=== PATIENT | male | born 1995 | race Caucasian/White ===

== ENCOUNTER 2025-02-20 12:14 | Emergency (ER) | payer SELFPAY ==
[2025-02-20 12:24] VITALS: BP 141/94; PULSE 93; RESP 16; TEMP 37.1; O2SAT 100
--- NOTE | 2025-02-20 12:26 | ED.SKABFB ---
HPI - Skin/Abscess/Foreign Bdy General Chief complaint: Skin/Abscess/Foreign Body Stated complaint: area behind left ear painful Time Seen by Provider: 02/20/25 12:27 Source: patient, RN notes reviewed and old records reviewed Mode of arrival: ambulatory Limitations: no limitations History of Present Illness HPI narrative: 29-year-old male presents to the [facility] with concerns of pain, swelling posterior left earlobe. Patient does have a gauge in the area, multiple piercings without ear rings. Area is fluctuant. Patient reports that it has been there for several days. And getting bigger and more painful Related Data Allergies Allergy/AdvReac Type Severity Reaction Status Date / Time No Known Allergies Allergy Verified 02/20/25 12:52 Review of Systems Review of Systems: All systems reviewed & are unremarkable except as noted in HPI and below Constitutional: Constitutional: Reports no additional constitutional complaints ENT: Reports as per HPI Cardiovascular: Cardiovascular: Reports no additional cardiovascular complaints, Denies chest pain and Denies dyspnea Respiratory: Respiratory: Reports no additional respiratory complaints, Denies chest congestion, Denies cough and Denies dyspnea Musculoskeletal: Musculoskeletal: Reports no additional musculoskeletal complaints Integumentary/Breasts: Skin/Breast: Reports system reviewed and no additional complaints, except as docu PMFSH Comments At the time of my signature, I reviewed and agree with the nursing past medical, surgical, social, and family history. There is no relevant family history pertinent to the patient complaint. Exam Const: General: cooperative, healthy appearing, comfortable, no acute distress, well developed, alert and well nourished Nutritional Appearance: well nourished Orientation/consciousness: patient oriented x3 Limitations: no limitations HENMT: Head: normal to inspection Ears: hearing grossly normal bilaterally, TM's normal bilaterally, EAC's normal, mastoids normal, no periauricular adenopathy and other (Posterior left earlobe, fluctuant, erythema. 1.5x2 cm) Eyes: General: appearance normal, both eyes and all related structures Alignment and Position: alignment normal Neck: Neck: normal visual inspection, full ROM, no lymphadenopathy and no meningeal signs Chest: Chest palpation & inspection: normal inspection of the chest Resp: Effort & Inspection: normal respiratory effort and able to speak in complete sentences Auscultation: clear to auscultation bilaterally, no crackles, no rales, no rhonchi and no wheezes Cardio: Rate: regular rate Skin: General skin exam: normal color and no rashes or lesions noted Neuro: General: patient oriented x3, gait normal, moves all extremities and no meningeal signs Cognition (Neuro): normal cognition Speech: normal speech Gait exam (Neuro): Normal gait present Extrem: General: normal to inspection, full ROM, capillary refill normal and normal gait Psych: Appearance: grossly normal and well kempt Mental Status: mental status grossly normal Speech and movement: Normal speech and movement present and Clear speech present Affect: normal affect Attitude: cooperative Course Course Level of Care: Express Care Visit Vital Signs Vital signs: Vital Signs Temperature 98.7 F 02/20/25 12:24 Pulse Rate 93 02/20/25 12:24 Respiratory Rate 16 02/20/25 12:24 Blood Pressure 141/94 H 02/20/25 12:24 Pulse Oximetry 100 02/20/25 12:24 Oxygen Delivery Room Air 02/20/25 12:24 Temperature 98.7 F 02/20/25 12:24 Pulse Rate 93 02/20/25 12:24 Respiratory Rate 16 02/20/25 12:24 Blood Pressure 141/94 H 02/20/25 12:24 Pulse Oximetry 100 02/20/25 12:24 Oxygen Delivery Room Air 02/20/25 12:24 Reviewed Procedures Abscess I/D ear: Date of Incision: 02/20/25 Time of Incision: 12:45 Side (if applicable): left Technique: needle aspiration and incised with #11 blade Amount of fluid expressed (mL): 20 Irrigation: No Packing used?: none I&D Results: Pus Abcess I&D Additional Comments: Procedure explained. Verbal consent obtained. Area cleaned with Betadine, used 18 gauge needle, needle aspiration attempted to. Purulent drainage noted. Opened little more with an 11 blade. Significant amount of purulent drainage noted, culture collected and sent to lab. MDM - Skin/Abscess/Foreign Bdy MDM Narrative Medical decision making narrative: Patient sitting comfortably in exam room. Patient is nontoxic, vitals stable. Patient presents for for abscess posterior left earlobe. Area opened and collected, sent to lab Patient appropriate for outpatient treatment with follow-up Discharge instructions reviewed with patient, as well as provided in writing per nursing staff. The instructions also include specific and strict return/GO TO THE ER as well as f/u information. All questions have been answered, and the patient deny any further questions with discharge and discharge plan. Some parts of this dictation were generated by voice recognition software and may contain typographical and/or grammatical inaccuracies. Differential Diagnosis Differential diagnosis: Likely abscess of skin or subcutaneous tissue, cellulitis, insect bites and contact dermatitis Critical Care Time Critical Care Time Critical Care Time: No Discharge Plan Discharge Clinical Impression: Abscess of skin or subcutaneous tissue Qualifiers: Site of cutaneous abscess: unspecified site Qualified Code(s): L02.91 - Cutaneous abscess, unspecified Patient Disposition: Home Condition: Stable Instructions: Antibiotic Form, Abscess (ED), Abscess Incision and Drainage (DC) Additional Instructions: DO NOT pick at the area. This will only make the area worse and drive infection deeper. Shower and wash with soapy water. Keep area clean and dry. Take all the antibiotics as prescribed. Make sure to keep a dressing in place especially while it is draining Follow up with PCP in 7-10 days Return to Urgent care or go to the ER for worsened condition or Symptoms Patient Language: [place] Prescriptions: New clindamycin HCl [Cleocin HCl] 300 mg capsule 300 mg PO TID 7 Days Qty: 21 0RF Follow-up/Referrals: John Person MD [Physician] - 3 Days PHYSICIAN,TRAFFIC CONTROL FLAGGER [Primary Care Provider] - Time of Disposition: 12:52
== END 2025-02-20 13:00 | disposition home or self-care (01) ==
PROVIDERS: Emergency Provider Nurse Practitioner
DX: H60.02 Abscess of left external ear (principal)
CPT/HCPCS: 10060; 87070; 87075; 87205; 99213; G0463